=== PATIENT | male | born 1995 | race Caucasian/White ===

== ENCOUNTER 2024-03-11 11:48 | Emergency (ER) | payer SELFPAY | END 2024-03-11 14:00 | disposition home or self-care (01) | LOC: ED 11:48 | DX: T23.002A Burn of unspecified degree of left hand, unspecified site, initial encounter (principal); S02.2XXA Fracture of nasal bones, initial encounter for closed fracture; S20.219A Contusion of unspecified front wall of thorax, initial encounter; Y09 Assault by unspecified means ==